=== PATIENT | female | born 1985 | race Two or more races ===

== ENCOUNTER 2019-03-06 19:50 | Outpatient (CLI) | payer MEDICAID ==
[~2019-03-06] VITALS: Ht 175.3 cm; Wt 84.1 kg
[2019-03-06 20:13] LABS: MICROSCOPIC AUTO
[2019-03-06] MEDS ORDERED: PREN-59 PO (20:14)
[2019-03-06] MEDS ORDERED: NITROFURANTOIN (MACROBID) 100 MG CAPSULE PO ONE (20:25)
[2019-03-06] MEDS ORDERED: NITROFURANTOIN (MACROBID) 100 MG CAPSULE ONE (20:32)
== END 2019-03-06 20:52 | disposition home or self-care (01) ==
LOC: LDOP 19:50
PROVIDERS: ATTEND Obstetrics & Gynecology
DX: O26.893 Other specified pregnancy related conditions, third trimester (principal); R10.9 Unspecified abdominal pain; Z3A.34 34 weeks gestation of pregnancy
CPT/HCPCS: 59025; 81001; 87086; 99201; G0463